=== PATIENT | male | born 1955 | race Caucasian/White ===

== ENCOUNTER → 2016-11-16 | Outpatient (CLI) | payer OTHER ==
[~2016-11-16] MED LIST: ALBUAER19 INH; FLUT0.0529 NAE; FLUT1AER5 INH; GABA-113 PO; LISI-461 PO; MELO15TA4 PO; ROPI1TAB PO; SERT50TA PO; TIOTCAP INH
== END | disposition home or self-care (01) ==
LOC: C.LAB 17:35
DX: Z02.83 Encounter for blood-alcohol and blood-drug test (principal)